=== PATIENT | male | born 1965 | race African-American/Black ===

== ENCOUNTER 2017-04-10 15:32 | Inpatient (IN) | payer OTHER ==
[2017-04-10 17:01] VITALS: BMI 22.1
[2017-04-10] MEDS ORDERED: NICOTINE POLACRILEX 2 MG GUM BC PRN (18:06)
[2017-04-10] MEDS ORDERED: P-EPHED 60MG/TRIPROLIDI 2.5MG TABLET PO PRN (18:06)
[2017-04-10] MEDS ORDERED: MENTHOL/PHENOL 1 EACH UD MM PRN (18:06)
[2017-04-10] MEDS ORDERED: LOPERAMIDE HCL 2 MG CAPSULE PO PRN (18:06)
[2017-04-10] MEDS ORDERED: MAGNESIUM HYDROX 2400MG/30ML ORAL SUSPENSION 30 ML CUP PO PRN (18:06)
[2017-04-10] MEDS ORDERED: IBUPROFEN 400 MG TABLET (FP) PO PRN (18:06)
[2017-04-10] MEDS ORDERED: guaiFENesin/D-METHORPHAN HB 10 ML UNIT-DOSE CUPS PO PRN (18:06)
[2017-04-10] MEDS ORDERED: MAGNESIUM CITRATE 300 ML BOTTLE PO PRN (18:06)
[2017-04-10] MEDS ORDERED: MAG HYDROX/AL HYDROX/SIMETH 30 ML UNIT-DOSE CUP PO PRN (18:06)
[2017-04-10] MEDS ORDERED: ACETAMINOPHEN 325 MG TABLET (FP) PO PRN (18:06)
--- NOTE | 2017-04-10 18:06 | HP ---
[id number] Restless Observation: 3= Extraneous Movement Pupil Size: 0= Normal to Room Light Bone or Joint Aches: 2= Severe Diffuse Aches Runny Nose/ Eye Tearin= Runny Nose/Eyes GI Upset > 30mins: 2= Nausea/Diarrhea Tremor Observation: 2= Slight Tremor Visible Yawning Observation: 0= None Anxiety or Irritability: 2=Irritable/Anxious Goose Flesh Skin: 0=Smooth Skin COWS Score: 14 Admission [facility] Chief Complaint: WITHDRAWAL SX Allergies/Adverse Reactions: Allergies Allergy/AdvReac Type Severity Reaction Status Date / Time No Known Allergies Allergy Unverified 04/10/17 17:27 History of Present Illness: 51 YEARS OLD MALE WITH LONG HISTORY OF OPIOID NICOTINE DEPENDENCE DENIES MEDICAL ISSUE DENIES MENTAL ILLNESS IS ADMITTED TO DETOX Exam Limitations: No Limitations - Ebola screening Have you traveled outside of the country in the last 21 days: No Have you had contact with anyone from an Ebola affected area: No Have you been sick,other than usual withdrawal symptoms: No Do you have a fever: No - Review of Systems Constitutional: Chills, Loss of Appetite, Changes in sleep, Unintentional Wgt. Loss, Unexplained wgt Loss EENT: reports: Dental Problems (UPPER DENTURE MISSING) Respiratory: reports: No Symptoms reported Cardiac: reports: No Symptoms Reported GI: reports: Nausea, Poor Appetite, Poor Fluid Intake, Vomiting, Abdominal cramping : reports: No Symptoms Reported Musculoskeletal: reports: Back Pain, Joint Pain, Muscle Pain, Neck Pain Integumentary: reports: No Symptoms Reported Neuro: reports: Tremors Endocrine: reports: No Symptoms Reported Hematology: reports: No Symptoms Reported Psychiatric: reports: Judgement Intact, Mood/Affect Appropiate, Orientated x3 Other Systems: Reviewed and Negative Patient History - Patient Medical History Hx Anemia: No Hx Asthma: No Hx Chronic Obstructive Pulmonary Disease (COPD): No Hx Cancer: No Hx Cardiac Disorders: No Hx Congestive Heart Failure: No Hx Hypertension: No Hx Hypercholesterolemia: No Hx Pacemaker: No HX Cerebrovascular Accident: No Hx Seizures: No Hx Dementia: No Hx Diabetes: No Hx Gastrointestinal Disorders: No Hx Liver Disease: No Hx Genitourinary Disorders: No Hx Sexually Transmitted Disorders: No Hx Renal Disease (ESRD): No Hx Thyroid Disease: No Hx Human Immunodeficiency Virus (HIV): No Hx Hepatitis C: No Hx Depression: No Hx Suicide Attempt: No Hx Bipolar Disorder: No Hx Schizophrenia: No - Patient Surgical History Past Surgical History: No - PPD History Previous Implant?: Yes Documented Results: Negative w/o proof Implanted On Prior [facility] Admission?: No PPD to be Administered?: Yes - Smoking Cessation Smoking history: Current every day smoker Have you smoked in the past 12 months: Yes Aproximately how many cigarettes per day: 7 Cigars Per Day: 0 Hx Chewing Tobacco Use: No Initiated information on smoking cessation: Yes 'Breaking Loose' booklet given: 04/10/17 - Substance & Tx. History Hx Alcohol Use: No Hx Substance Use: Yes Substance Use Type: Cocaine, Marijuana, Opiates Hx Substance Use Treatment: Yes - Substances Abused Cocaine Route: Smoking Frequency: 1-2 times per week Amount used: 1/2 gram Age of first use: 16 Date of Last Use: 04/09/17 Marijuana/Hashish Route: Smoking Frequency: 1-2 times per week Amount used: 1 blunt Age of first use: 16 Date of Last Use: 04/09/17 Heroin Route: Inhalation Frequency: Daily Amount used: 1 bundle Age of first use: 17 Date of Last Use: 04/10/17 Family Disease History - Family Disease History Family Disease History: Heart Disease: Mother (), Respiratory: Mother, Other: Father () Admission Physical Exam [facility] - Vital Signs Vital Signs: Vital Signs - 24 hr 04/10/17 16:59 Temperature 98.6 F Pulse Rate 64 Respiratory 18 Rate Blood Pressure 103/62 - Physical General Appearance: Yes: Appropriately Dressed, Mild Distress, Thin, Tremorous, Irritable, Sweating, Anxious HEENTM: Yes: Hearing grossly Normal, Normal ENT Inspection, Normocephalic, Normal Voice Respiratory: Yes: Chest Non-Tender, Lungs Clear, Normal Breath Sounds, No Respiratory Distress, No Accessory Muscle Use Neck: Yes: Supple, Trachea in good position Breast: Yes: Breasts Symetrical Cardiology: Yes: Regular Rhythm, Regular Rate, S1, S2, Bradycardia Abdominal: Yes: Non Tender, Soft Genitourinary: Yes: Within Normal Limits Back: Yes: Normal Inspection Musculoskeletal: Yes: full range of Motion, Gait Steady, Back pain, Muscle Pain Extremities: Yes: Normal Inspection, Normal Range of Motion, Non-Tender, Tremors Neurological: Yes: Fully Oriented, Alert, Motor Strength 5/5, Normal Mood/Affect , Normal Response Integumentary: Yes: Warm, Track Mejia (OLD HEALED) Lymphatic: Yes: Within Normal Limits - Diagnostic (1) Opioid dependence with opioid-induced mood disorder Current Visit: Yes Status: Acute (2) Nicotine dependence Current Visit: Yes Status: Acute Qualifiers: Nicotine product type: cigarettes Substance use status: in withdrawal Qualified Code(s): F17.213 - Nicotine dependence, cigarettes, with withdrawal (3) Weight loss Current Visit: Yes Status: Acute Cleared for Admission [facility] - Detox or Rehab [facility] Level of Care: Medically Managed Detox Regimen/Protocol: Methadone [facility] Breath Alcohol Content Breath Alcohol Content: 0 Urine Drug Screen - Results Drug Screen Negative: No Urine Drug Screen Results: THC-Marijuana, MIHIR-Cocaine, OPI-Opiates
[2017-04-10] MEDS ORDERED: METHADONE HCL 10 MG TABLET (FOR DETOX USE ONLY) PO ONE ×2 (18:45→23:00)
[2017-04-10] MEDS: diazePAM 5 MG TABLET PO PRN ×2 (19:04→22:44)
[2017-04-10] MEDS: diphenhydrAMINE HCL 50 MG CAPSULE PO PRN (22:44)
[2017-04-10] MEDS: THIAMINE HCL 100 MG TABLET (FP) PO SCH (22:44)
[2017-04-10 23:03] LABS: URINE APPEARANCE CLEAR; URINE BILIRUBIN NEGATIVE (NEGATIVE); URINE BLOOD NEGATIVE (NEGATIVE); URINE COLOR DKYELLOW; URINE GLUCOSE (UA) NEGATIVE (NEGATIVE); URINE KETONE NEGATIVE (NEGATIVE); URINE LEUK ESTERASE NEGATIVE (NEGATIVE); URINE NITRITE NEGATIVE (NEGATIVE); URINE PROTEIN NEGATIVE (NEGATIVE); URINE UROBILINOGEN NEGATIVE E.U./dl (0.2-1.0)
[2017-04-11 09:58] LABS: MCH 30.1 pg (25.7-33.7); MCHC 33.7 g/dl (32.0-35.9); MEAN CELL VOLUME 89.3 fl (80-96); MEAN PLT VOLUME 7.6 fl (7.5-11.1); PLATELET COUNT 194 K/MM3 (134-434); RDW 14.1 % (11.9-15.9); WHITE BLOOD COUNT 5.8 K/mm3 (4.0-10.0)
[2017-04-11 09:59] LABS: ALBUMIN 3.3 g/dl (3.4-5.0); ANION GAP 6 (8-16); BILIRUBIN,TOTAL 0.5 mg/dL (0.2-1.0); CALCIUM 8.8 mg/dL (8.5-10.1); CO2 29 mmol/L (21-32); COCKROFT - GAULT 93.44; CREATININE 0.9 mg/dL (0.7-1.3); GLUCOSE,RANDOM 88 mg/dL (74-106); SGOT/AST 15 U/L (15-37); SGPT/ALT 12 U/L (12-78); TOT PROT 6.7 g/dl (6.4-8.2)
[2017-04-11 10:00] LABS: ALK PHOS 53 U/L (45-117)
[2017-04-11] MEDS ORDERED: METHADONE HCL 10 MG TABLET (FOR DETOX USE ONLY) PO ONE (10:00)
--- NOTE | 2017-04-11 10:51 | PN ---
S COWS - Scale Resting Pulse: 0= [place] 80 or Below Sweatin= Chills/Flushing Restless Observation: 3= Extraneous Movement Pupil Size: 1= Pupils >than Normal Bone or Joint Aches: 2= Severe Diffuse Aches Runny Nose/ Eye Tearin= Runny Nose/Eyes GI Upset > 30mins: 3= Vomiting/Diarrhea Tremor Observation of Outstretched Hands: 2= Slight Tremor Visible Yawning Observation: 1= 1-2x During Session Anxiety or Irritability: 2=Irritable/Anxious Goose Flesh Skin: 0=Smooth Skin COWS Score: 17 S Progress Note (SOAP) Subjective: ALERT,IRRITABLE,ANXIOUS,PAIN N THE BODY AND BACK,TREMOR Objective: 04/11/17 10:49 Vital Signs Temperature 97.9 F 04/11/17 10:27 Pulse Rate 58 L 04/11/17 10:27 Respiratory Rate 18 04/11/17 10:27 Blood Pressure 117/74 04/11/17 10:27 O2 Sat by Pulse Oximetry (%) EKG SINUS BRADYCARDIA RATE 52 NO CHEST PAIN,NO SOB,NO DIZZINESS Laboratory Last Values WBC 5.8 K/mm3 (4.0-10.0) 04/11/17 07:00 RBC 4.63 M/mm3 (4.00-5.60) 04/11/17 07:00 Hgb 13.9 GM/dL (11.7-16.9) 04/11/17 07:00 Hct 41.3 % (35.4-49) 04/11/17 07:00 MCV 89.3 fl (80-96) 04/11/17 07:00 MCHC 33.7 g/dl (32.0-35.9) 04/11/17 07:00 RDW 14.1 % (11.9-15.9) 04/11/17 07:00 Plt Count 194 K/MM3 (134-434) 04/11/17 07:00 MPV 7.6 fl (7.5-11.1) 04/11/17 07:00 Sodium 142 mmol/L (136-145) 04/11/17 07:00 Potassium 4.2 mmol/L (3.5-5.1) 04/11/17 07:00 Chloride 107 mmol/L (98-107) 04/11/17 07:00 Carbon Dioxide 29 mmol/L (21-32) 04/11/17 07:00 Anion Gap 6 (8-16) L 04/11/17 07:00 BUN 11 mg/dL (7-18) 04/11/17 07:00 Creatinine 0.9 mg/dL (0.7-1.3) 04/11/17 07:00 Creat Clearance w eGFR > 60 (>60) 04/11/17 07:00 Random Glucose 88 mg/dL (74-106) 04/11/17 07:00 Calcium 8.8 mg/dL (8.5-10.1) 04/11/17 07:00 Total Bilirubin 0.5 mg/dL (0.2-1.0) 04/11/17 07:00 AST 15 U/L (15-37) 04/11/17 07:00 ALT 12 U/L (12-78) 04/11/17 07:00 Alkaline Phosphatase 53 U/L (45-117) 04/11/17 07:00 Total Protein 6.7 g/dl (6.4-8.2) 04/11/17 07:00 Albumin 3.3 g/dl (3.4-5.0) L 04/11/17 07:00 Urine Color Dkyellow 04/10/17 23:00 Urine Appearance Clear 04/10/17 23:00 Urine pH 5.0 (5.0-8.0) 04/10/17 23:00 Urine Protein Negative (NEGATIVE) 04/10/17 23:00 Urine Glucose (UA) Negative (NEGATIVE) 04/10/17 23:00 Urine Ketones Negative (NEGATIVE) 04/10/17 23:00 Urine Blood Negative (NEGATIVE) 04/10/17 23:00 Urine Nitrite Negative (NEGATIVE) 04/10/17 23:00 Urine Bilirubin Negative (NEGATIVE) 04/10/17 23:00 Urine Urobilinogen Negative E.U./dl (0.2-1.0) 04/10/17 23:00 Ur Leukocyte Esterase Negative (NEGATIVE) 04/10/17 23:00 LABS PENDING Assessment: 04/11/17 10:51 WITHDRAWAL SYMPTOM Plan: CONTINUE DETOX
[2017-04-11] MEDS: PRENATAL VITAMINS W/ FOLIC ACID TABLET (FP) PO SCH (11:03)
[2017-04-11] MEDS: NICOTINE 14 MG/24 HOURS TOPICAL PATCH TD SCH (11:17)
--- NOTE | 2017-04-11 12:51 | EKG ---
Test Reason : Blood Pressure : / mmHG Vent. Rate : 052 BPM Atrial Rate : 052 BPM P-R Int : 172 ms QRS Dur : 082 ms QT Int : 422 ms P-R-T Axes : 078 071 054 degrees QTc Int : 392 ms SINUS BRADYCARDIA OTHERWISE NORMAL ECG NO PREVIOUS ECGS AVAILABLE Confirmed by ROSANGELA PÉREZ, CHRISTINA ([id number]) on 04/11/2017 12:51:11 PM Referred By: Confirmed By:CHRISTINA ADAMES MD
[2017-04-11] MEDS: THIAMINE HCL 100 MG TABLET (FP) PO SCH (22:12)
[2017-04-11] MEDS: diphenhydrAMINE HCL 50 MG CAPSULE PO PRN (22:12)
[2017-04-12] MEDS: diphenhydrAMINE HCL 50 MG CAPSULE PO PRN ×2 (02:06→22:50)
[2017-04-12] MEDS ORDERED: METHADONE HCL 5 MG TABLET (FOR DETOX USE ONLY) PO ONE (10:00)
--- NOTE | 2017-04-12 10:45 | PN ---
S COWS - Scale Resting Pulse: 0= [place] 80 or Below Sweatin= Chills/Flushing Restless Observation: 3= Extraneous Movement Pupil Size: 1= Pupils >than Normal Bone or Joint Aches: 2= Severe Diffuse Aches Runny Nose/ Eye Tearin= Runny Nose/Eyes GI Upset > 30mins: 2= Nausea/Diarrhea Tremor Observation of Outstretched Hands: 2= Slight Tremor Visible Yawning Observation: 1= 1-2x During Session Anxiety or Irritability: 2=Irritable/Anxious Goose Flesh Skin: 0=Smooth Skin COWS Score: 16 S Progress Note (SOAP) Subjective: ALERT,IRRITABLE,ANXIOUS,INTERRUPTED SLEEP,PAIN IN THE BODY AND BACK Objective: 04/12/17 10:44 Vital Signs Temperature 97.0 F L 04/12/17 06:00 Pulse Rate 49 L 04/12/17 06:00 Respiratory Rate 18 04/12/17 06:00 Blood Pressure 125/83 04/12/17 06:00 O2 Sat by Pulse Oximetry (%) Laboratory Last Values WBC 5.8 K/mm3 (4.0-10.0) 04/11/17 07:00 RBC 4.63 M/mm3 (4.00-5.60) 04/11/17 07:00 Hgb 13.9 GM/dL (11.7-16.9) 04/11/17 07:00 Hct 41.3 % (35.4-49) 04/11/17 07:00 MCV 89.3 fl (80-96) 04/11/17 07:00 MCHC 33.7 g/dl (32.0-35.9) 04/11/17 07:00 RDW 14.1 % (11.9-15.9) 04/11/17 07:00 Plt Count 194 K/MM3 (134-434) 04/11/17 07:00 MPV 7.6 fl (7.5-11.1) 04/11/17 07:00 Sodium 142 mmol/L (136-145) 04/11/17 07:00 Potassium 4.2 mmol/L (3.5-5.1) 04/11/17 07:00 Chloride 107 mmol/L (98-107) 04/11/17 07:00 Carbon Dioxide 29 mmol/L (21-32) 04/11/17 07:00 Anion Gap 6 (8-16) L 04/11/17 07:00 BUN 11 mg/dL (7-18) 04/11/17 07:00 Creatinine 0.9 mg/dL (0.7-1.3) 04/11/17 07:00 Creat Clearance w eGFR > 60 (>60) 04/11/17 07:00 Random Glucose 88 mg/dL (74-106) 04/11/17 07:00 Calcium 8.8 mg/dL (8.5-10.1) 04/11/17 07:00 Total Bilirubin 0.5 mg/dL (0.2-1.0) 04/11/17 07:00 AST 15 U/L (15-37) 04/11/17 07:00 ALT 12 U/L (12-78) 04/11/17 07:00 Alkaline Phosphatase 53 U/L (45-117) 04/11/17 07:00 Total Protein 6.7 g/dl (6.4-8.2) 04/11/17 07:00 Albumin 3.3 g/dl (3.4-5.0) L 04/11/17 07:00 Urine Color Dkyellow 04/10/17 23:00 Urine Appearance Clear 04/10/17 23:00 Urine pH 5.0 (5.0-8.0) 04/10/17 23:00 Ur Specific Walker 1.025 (1.005-1.025) 04/10/17 23:00 Urine Protein Negative (NEGATIVE) 04/10/17 23:00 Urine Glucose (UA) Negative (NEGATIVE) 04/10/17 23:00 Urine Ketones Negative (NEGATIVE) 04/10/17 23:00 Urine Blood Negative (NEGATIVE) 04/10/17 23:00 Urine Nitrite Negative (NEGATIVE) 04/10/17 23:00 Urine Bilirubin Negative (NEGATIVE) 04/10/17 23:00 Urine Urobilinogen Negative E.U./dl (0.2-1.0) 04/10/17 23:00 Ur Leukocyte Esterase Negative (NEGATIVE) 04/10/17 23:00 RPR Titer Nonreactive (NONREACTIVE) 04/11/17 07:00 Assessment: 04/12/17 10:44 WITHDRAWAL SYMPTOM Plan: CONTINUE DETOX
[2017-04-12] MEDS: PRENATAL VITAMINS W/ FOLIC ACID TABLET (FP) PO SCH (10:48)
[2017-04-12] MEDS: NICOTINE 14 MG/24 HOURS TOPICAL PATCH TD SCH (10:48)
[2017-04-12] MEDS: diazePAM 5 MG TABLET PO PRN ×2 (10:50→22:50)
[2017-04-12] MEDS: THIAMINE HCL 100 MG TABLET (FP) PO SCH (22:50)
[2017-04-13] MEDS ORDERED: METHADONE HCL 5 MG TABLET (FOR DETOX USE ONLY) PO ONE (10:00)
[2017-04-13] MEDS: diazePAM 5 MG TABLET PO PRN ×2 (10:51→17:57)
[2017-04-13] MEDS: NICOTINE 14 MG/24 HOURS TOPICAL PATCH TD SCH (10:51)
[2017-04-13] MEDS: PRENATAL VITAMINS W/ FOLIC ACID TABLET (FP) PO SCH (10:51)
--- NOTE | 2017-04-13 12:43 | PN ---
[facility] Progress Note (SOAP) Subjective: ALERT,IRRITABLE,ANXIOUS,INTERRUPTED SLEEP,PAIN IN THE BODY Objective: 04/13/17 12:42 Vital Signs Temperature 98.4 F 04/13/17 10:30 Pulse Rate 83 04/13/17 10:30 Respiratory Rate 16 04/13/17 10:30 Blood Pressure 112/70 04/13/17 10:30 O2 Sat by Pulse Oximetry (%) Assessment: 04/13/17 12:42 WITHDRAWAL SYMPTOM Plan: CONTINUE DETOX
--- NOTE | 2017-04-13 12:45 | PN ---
[facility] Progress Note (SOAP) Subjective: ALERT,IRRITABLE,ANXIOUS,INTERRUPTED SLEEP Objective: 04/13/17 12:45 Vital Signs Temperature 98.4 F 04/13/17 10:30 Pulse Rate 83 04/13/17 10:30 Respiratory Rate 16 04/13/17 10:30 Blood Pressure 112/70 04/13/17 10:30 O2 Sat by Pulse Oximetry (%) Assessment: 04/13/17 12:45 WITHDRAWAL SYMPTOM Plan: CONTINUE DETOX
[2017-04-13] MEDS: diphenhydrAMINE HCL 50 MG CAPSULE PO PRN (22:14)
[2017-04-13] MEDS: THIAMINE HCL 100 MG TABLET (FP) PO SCH (22:14)
[2017-04-14] MEDS ORDERED: METHADONE HCL 10 MG TABLET (FOR DETOX USE ONLY) PO ONE (10:00)
[2017-04-14] MEDS: PRENATAL VITAMINS W/ FOLIC ACID TABLET (FP) PO SCH (10:27)
[2017-04-14] MEDS: NICOTINE 14 MG/24 HOURS TOPICAL PATCH TD SCH (10:27)
--- NOTE | 2017-04-14 10:29 | PN ---
[facility] Progress Note (SOAP) Subjective: ALERT,IRRITABLE,INTERRUPTED SLEEP Objective: 04/14/17 10:28 Vital Signs Temperature 98.1 F 04/14/17 10:14 Pulse Rate 67 04/14/17 10:14 Respiratory Rate 18 04/14/17 10:14 Blood Pressure 104/73 04/14/17 10:14 O2 Sat by Pulse Oximetry (%) Assessment: 04/14/17 10:28 WITHDRAWAL SYMPTOM Plan: CONTINUE DETOX,DISCHARGE IN [place]
[2017-04-14] MEDS: diphenhydrAMINE HCL 50 MG CAPSULE PO PRN (22:27)
[2017-04-14] MEDS: THIAMINE HCL 100 MG TABLET (FP) PO SCH (22:27)
[2017-04-15] MEDS ORDERED: METHADONE HCL 5 MG TABLET (FOR DETOX USE ONLY) PO ONE (06:00)
--- NOTE | 2017-04-15 09:00 | DS ---
[facility] Detox Discharge Summary Admission Date: 04/10/17 Discharge Date: 04/15/17 - History Present History: Opioid Dependence - Physical Exam Results Vital Signs: Vital Signs Temperature 97.9 F 04/15/17 06:00 Pulse Rate 54 L 04/15/17 06:00 Respiratory Rate 18 04/15/17 06:00 Blood Pressure 105/65 04/15/17 06:00 O2 Sat by Pulse Oximetry (%) - Treatment Hospital Course: Detox Protocol Followed, Detoxed Safely, Responded well, Discharged Condition Good, Rehab Referral Accepted - Medication Discharge Medications: Ambulatory Orders NK [No Known Home Medication] 04/10/17 - Diagnosis (1) Nicotine dependence Current Visit: Yes Status: Chronic Qualifiers: Nicotine product type: cigarettes Substance use status: uncomplicated Qualified Code(s): F17.210 - Nicotine dependence, cigarettes, uncomplicated (2) Opioid dependence with opioid-induced mood disorder Current Visit: Yes Status: Chronic (3) Weight loss Current Visit: Yes Status: Acute - AMA Did Patient Leave Against Medical Advice: No
[2017-04-15] MEDS: PRENATAL VITAMINS W/ FOLIC ACID TABLET (FP) PO SCH (09:27)
[2017-04-15 09:41] VITALS: BP 110/70; PULSE 72; TEMP 98.2
[2017-04-15] MEDS: NICOTINE 14 MG/24 HOURS TOPICAL PATCH TD SCH (11:10)
--- NOTE | 2017-04-15 11:50 | CONSULT ---
[facility] Psychiatric Consult - Data Date of interview: 04/15/17 Admission source: [facility] Identifying data: This is 51 years old male with no psychiatric hospitalization history intoxicated with: Opioids, Nicotine, history of Cocaine and Cannabis abuse as well Substance Abuse History: - Smoking Cessation. Smoking history: Current every day smoker. Have you smoked in the past 12 months: Yes. Aproximately how many cigarettes per day: 7. Cigars Per Day: 0. Hx Chewing Tobacco Use: No. Initiated information on smoking cessation: Yes. 'Breaking Loose' booklet given : 04/10/17. - Substance & Tx. History. Hx Alcohol Use: No. Hx Substance Use: Yes. Substance Use Type: Cocaine, Marijuana, Opiates. Hx Substance Use Treatment: Yes. - Substances Abused. Cocaine. Route: Smoking. Frequency: 1-2 times per week. Amount used: 1/2 gram. Age of first use: 16. Date of Last Use: 04/09/17. Marijuana/Hashish. Route: Smoking. Frequency: 1-2 times per week. Amount used: 1 blunt. Age of first use: 16. Date of Last Use : 04/09/17. Heroin. Route: Inhalation. Frequency: Daily. Amount used: 1 bundle. Age of first use: 17. Date of Last Use: 04/10/17 Medical History: Weight loss history Psychiatric History: Patient reports history of depression, history of hearing voices, reports no medications taking prior to admission, with ni history of psychiatric hospitalizations Physical/Sexual Abuse/Trauma History: Denies Additional Comment: Observation. Detox Unit Care Protocol Mental Status Exam - Mental Status Exam Alert and Oriented to: Person Cognitive Function: Fair Patient Appearance: Well Groomed Mood: Apprehensive Affect: Mood Congruent Patient Behavior: Cooperative Speech Pattern: Appropriate Voice Loudness: Normal Thought Process: Goal Oriented Thought Disorder: Being Controlled Hallucinations: Auditory Suicidal Ideation: Denies Homicidal Ideation: Denies Insight/Judgement: Fair Sleep: Difficulty falling asleep Appetite: Weight loss Muscle strength/Tone: Normal Gait/Station: Normal Additional Comments: Observation. Detox Unit Care Protocol Psychiatric Findings - Problem List ([place] 1, 2,3) (1) Nicotine dependence Current Visit: Yes Status: Chronic Qualifiers: Nicotine product type: cigarettes Substance use status: uncomplicated Qualified Code(s): F17.210 - Nicotine dependence, cigarettes, uncomplicated (2) Opioid dependence with opioid-induced mood disorder Current Visit: Yes Status: Chronic (3) Opioid-induced psychotic disorder with hallucinations Current Visit: Yes Status: Acute - Initial Treatment Plan Initial Treatment Plan: Observation. Detox Unit Care Protocol
== END 2017-04-15 11:00 | disposition home or self-care (01) | DRG 773 ==
LOC: YASAS 15:32 → Y6N 18:18
PROVIDERS: ADMIT Internal Medicine Addiction Medicine; ATTEND Internal Medicine Addiction Medicine
PROC: HZ2ZZZZ Detoxification Services for Substance Abuse Treatment (ICD-10-PCS; principal; 2017-04-15)
DX: F11.23 Opioid dependence with withdrawal (principal); F17.210 Nicotine dependence, cigarettes, uncomplicated; F19.24 Other psychoactive substance dependence with psychoactive substance-induced mood disorder; F11.251 Opioid dependence with opioid-induced psychotic disorder with hallucinations; R63.4 Abnormal weight loss; Z68.22 Body mass index [BMI] 22.0-22.9, adult
CPT/HCPCS: 36415; 80053; 81003; 85027; 86593; 93005; 93010